=== PATIENT | female | born 1980 | race Caucasian/White ===

== ENCOUNTER 2016-08-15 23:52 | Emergency (ER) | payer OTHER ==
--- NOTE | 2016-08-16 02:13 | ED CLINICAL REPORT ---
Clinical Report - Physicians/Mid Levels [facility] [address] [place] [address] 08/15/2016 23:55 Patient: BRIAN GUTIERRES Time Seen: 02:11 Aug 16 2016. Arrived- By private vehicle. Historian- patient. CPT: ER phys charges level 3 (#[id number]). HISTORY OF PRESENT ILLNESS Chief Complaint: EARACHE. This started today and is still present. Onset during light activity. Modifying factors. Not worsened by anything. Not relieved by anything. Location- left ear. The pain is described as moderate. The patient has had ear pain and recent air travel. She has had mild left-sided hearing loss. No ear drainage, nasal discharge or congestion, sinus pressure or complaint of foreign body in the ear. No sore throat or toothache. Similar symptoms previously: None. Recent medical care: Not recently seen/assessed. REVIEW OF SYSTEMS No fever, chills, cough, difficulty breathing or chest pain. No nausea, vomiting, diarrhea, abdominal pain or skin rash. No enlarged lymph nodes. All systems otherwise negative, except as recorded above. PAST HISTORY Delayed sleep onset. Gastroesophageal Reflux. Anxiety Reaction. . Tubal Ligation. No history of frequent ear infections. Medications: Melatonin Oral. Airborne Oral. Vitamin D Oral. Multivitamin Oral. CeleXA Oral. Omeprazole Oral. Allergies: No Known Drug Allergy. SOCIAL HISTORY Never smoker. No alcohol use or drug use. ADDITIONAL NOTES The nursing notes have been reviewed. PHYSICAL EXAM Vital Signs: 08/16/2016 00:13 BP: 120/83. HR: 89. RR: 18. O2 saturation: 100%. Temp: 100.7 F. Pain level now: 7/10. Appearance: Alert. Appears to be in pain. Patient in moderate distress. Eyes: Eyes normal inspection. Ear (right): Right ear normal. Right tympanic membrane normal. Throat: Pharynx normal. Nose: Nose normal. Ear (left): There is dullness and perforation of the tympanic membrane and fluid behind the tympanic membrane. Left ear normal. Neck: Normal inspection. CVS: Normal heart rate and rhythm. Respiratory: No respiratory distress. Skin: Normal skin color. No rash. Neuro: Oriented X 3. PROGRESS AND PROCEDURES Course of Care: percocet 2 po Augmentin 875 mg po. Patient/family counseled. Disposition: Discharged. Condition: stable. CLINICAL IMPRESSION Acute suppurative left otitis media. No recurrent left otitis media. No chronic left otitis media. Barotrauma left ear. INSTRUCTIONS Do not allow water in ear. Drink plenty of fluids. Warnings: Further evaluation is necessary. GENERAL WARNINGS: Return or contact your physician immediately if your condition worsens or changes unexpectedly, if not improving as expected, or if other problems arise. Your Current Medications: CONTINUE TAKING THE FOLLOWING MEDICATIONS: Airborne Oral. CeleXA Oral. Melatonin Oral. Multivitamin Oral. Omeprazole Oral. Vitamin D Oral. Prescription Medications: Augmentin 875 mg: take 1 tablet orally every 12 hours for 7 days. Dispense fourteen (14). No refills. Substitution is permissible. Oxycodone/APAP 5 mg/325 mg: take 1-2 tablets orally every 4 hours as needed for pain. Dispense fifteen (15). No refill. Follow-up: Follow up with your doctor in one week. Call for an appointment. Understanding of the discharge instructions verbalized by patient. Discharge instructions reviewed with and understanding was verbalized by spouse. (Electronically signed by Ben Friedman MD 08/18/2016 23:33)
--- NOTE | 2016-08-16 02:13 | ED NURSING NOTES ---
Clinical Report - Nurses [facility] [address] [place] [address] 08/15/2016 23:55 Patient: BRIAN GUTIERRES TRIAGE Triage time 00:14. Acuity: LEVEL 4. Chief Complaint: LEFT EAR PAIN and (Onset yesterday during flight from [place], reports "stabbing, horrible pain on descent," radiating down to jaw; Alleviating factors: ibuprofen and tylenol; Aggravating factors: everything.). Alert. No acute distress. SEPSIS SCREEN: Sepsis Screen: negative. Negative (no infection suspected/documented). --00:21 Angus Fuentes R.N. 00:13 08/16/16. BP: 120/83 (regular adult cuff) taken on the left arm, via an automated monitor, while sitting. HR: 89 (normal rate). RR: 18 (regular, unlabored and normal). O2 saturation: 100% on room air. Temp: 100.7 F (oral). Pain level now: 01/25. --00:21 Angus Fuentes R.N. Weight: 61.6 kg stated. Height/Length: 65 inches Per Patient. BMI: 22.6. --00:15 Angus Fuentes R.N. Medications Omeprazole Oral. --00:14 Angus Fuentes R.N. CeleXA Oral. --00:15 Angus Fuentes R.N. Multivitamin Oral. --00:15 Angus Fuentes R.N. Vitamin D Oral. --00:15 Angus Fuentes R.N. Airborne Oral. --00:15 Angus Fuentes R.N. Melatonin Oral. --00:15 Angus Fuentes R.N. Medication/allergy information source: the patient. --00:21 Angus Fuentes R.N. Allergies No Known Drug Allergy. --00:15 Angus Fuentes R.N. History Arrived by private vehicle. Historian: patient. Accompanied by spouse. Primary physician (Dr. Orosco). This started yesterday. 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 Symptoms did not improve after treatment. (2100 last dose). PAST MEDICAL HX: Immunizations: up-to-date and seasonal influenza. Last normal menstrual period- about 1 week ago. Denies current . SOCIAL HX: Never smoker. No alcohol use or drug use. She has not traveled outside the [place] The patient was not exposed to MRSA. ABUSE ASSESSMENT: Abuse assessment: The patient was asked "Do you feel safe in your home?" and "Has anyone hurt you or threatened to hurt you?". No report of abuse. SELF HARM ASSESSMENT: A self harm assessment was performed. The patient answered "no" to the question "Do you have thoughts of harming or killing yourself?" and "Have you recently had thoughts about harming or killing others?". FALL RISK ASSESSMENT: Fall risk assessment completed. No fall risk identified. NUTRITIONAL RISK ASSESSMENT: The nutritional risk assessment revealed no deficiencies. LEARNING NEEDS ASSESSMENT: The learning needs assessment revealed no barriers. FUNCTIONAL ASSESSMENT: Functional assessment performed: wears glasses- this visual impairment is an ongoing problem. SKIN INTEGRITY ASSESSMENT: Skin integrity risk assessment completed. No skin integrity risk identified. --00:21 Angus Fuentes RDoug. PROBLEMS: Delayed sleep onset. Gastroesophageal Reflux. Anxiety Reaction. --00:16 Angus Fuentes RAdrianeN. ADDITIONAL SURGERIES: . Tubal Ligation. --00:16 Angus Fuentes RAdrianeN. Assessment GENERAL / NEURO / PSYCH: Alert. Oriented X 4. Appears in no acute distress. [place] Coma Scale: 15- eyes open spontaneously (4); best verbal response- oriented x 4 (5); best motor response- obeys commands (6). Patient appears calm and cooperative. HEENT: Left TM reveals erythema. (No pain on the mastoid, bilaterally.). No erythema or pain on movement of the right auricle. No exudate, inflammation, cerumen or cerumen impaction in the right external auditory canal. No erythema of the right TM. No erythema or pain upon movement of the left auricle. No exudate, inflammation, cerumen or cerumen impaction in the left external auditory canal. RESPIRATORY: Respirations not labored. SKIN: Skin is warm and dry. --00:21 Angus Fuentes R.N. Interventions ID band on patient. To waiting room. --00:21 Angus Fuentes R.N. PHYSICAL ASSESSMENT Ambulatory to room. GENERAL / NEURO / PSYCH: Alert. Appears in pain. HEENT: No facial asymmetry noted. Pupils equal, round and reactive to light. Nares within normal limits. Pharynx within normal limits. ( ear exam deferred to Provider-). RESPIRATORY: Respirations not labored. CVS: Capillary refill less than 2 seconds. SKIN: Skin is warm and dry. --00:41 Jojo Maloney. NURSING PROGRESS NOTES 01:48 08/16/16. BP: 110/55. HR: 90. O2 saturation: 96% on room air. Temp: deferred. Pain level now: 5/10. --01:49 Norma Almendarez ( Lights dimmed, patient resting quietly). --01:49 Norma Almendarez 02:23 08/16/2016 Oxycodone-APAP (Oxycodone-Acetaminophen) PO 5/325 mg Tablets 2 tab given. Allergies verified, confirmed 5 rights and sedative warning given to the patient and patient's family. --02:23 Norma Almendarez 02:24 08/16/2016 Augmentin (Amoxicillin-Pot Clavulanate) PO Capsules 875 mg given. Allergies verified and confirmed 5 rights. --02:24 Norma Almendarez. DISPOSITION / DISCHARGE 02:24 08/16/16. BP: 115/60. HR: 90. O2 saturation: 98% on room air. Temp: 100 F (oral). Pain level now: 5/10. --02:25 Norma Almendarez 02:26 08/16/16. Condition at departure: stable. No learning barriers present. Discharge instructions provided and reviewed with the patient and spouse. Reviewed warnings (Do not drive while taking seditive medications). Reviewed medication(s) side effects, precautions, dosing and course information. Prescription(s) given to the patient. Patient and spouse verbalized understanding. Written instructions provided in [place]. ( Follow up with PCP in one week.). The patient was discharged by the physician. She was discharged home and accompanied by spouse. She left the Emergency Department ambulatory and via private vehicle. Spouse driving. --02:26 Norma Almendarez. Locked/Released at 08/16/2016 2:30 by Norma Almendarez,
--- NOTE | 2016-08-16 02:13 | ED CLINICAL REPORT ---
Clinical Report - Physicians/Mid Levels [facility] [address] [place] [address] 08/15/2016 23:55 Patient: BRIAN GUTIERRES Time Seen: 02:11 Aug 16 2016. Arrived- By private vehicle. Historian- patient. CPT: ER phys charges level 3 (#[id number]). HISTORY OF PRESENT ILLNESS Chief Complaint: EARACHE. This started today and is still present. Onset during light activity. Modifying factors. Not worsened by anything. Not relieved by anything. Location- left ear. The pain is described as moderate. The patient has had ear pain and recent air travel. She has had mild left-sided hearing loss. No ear drainage, nasal discharge or congestion, sinus pressure or complaint of foreign body in the ear. No sore throat or toothache. Similar symptoms previously: None. Recent medical care: Not recently seen/assessed. REVIEW OF SYSTEMS No fever, chills, cough, difficulty breathing or chest pain. No nausea, vomiting, diarrhea, abdominal pain or skin rash. No enlarged lymph nodes. All systems otherwise negative, except as recorded above. PAST HISTORY Delayed sleep onset. Gastroesophageal Reflux. Anxiety Reaction. . Tubal Ligation. No history of frequent ear infections. Medications: Melatonin Oral. Airborne Oral. Vitamin D Oral. Multivitamin Oral. CeleXA Oral. Omeprazole Oral. Allergies: No Known Drug Allergy. SOCIAL HISTORY Never smoker. No alcohol use or drug use. ADDITIONAL NOTES The nursing notes have been reviewed. PHYSICAL EXAM Vital Signs: 08/16/2016 00:13 BP: 120/83. HR: 89. RR: 18. O2 saturation: 100%. Temp: 100.7 F. Pain level now: 7/10. Appearance: Alert. Appears to be in pain. Patient in moderate distress. Eyes: Eyes normal inspection. Ear (right): Right ear normal. Right tympanic membrane normal. Throat: Pharynx normal. Nose: Nose normal. Ear (left): There is dullness and perforation of the tympanic membrane and fluid behind the tympanic membrane. Left ear normal. Neck: Normal inspection. CVS: Normal heart rate and rhythm. Respiratory: No respiratory distress. Skin: Normal skin color. No rash. Neuro: Oriented X 3. PROGRESS AND PROCEDURES Course of Care: percocet 2 po Augmentin 875 mg po. Patient/family counseled. Disposition: Discharged. Condition: stable. CLINICAL IMPRESSION Acute suppurative left otitis media. No recurrent left otitis media. No chronic left otitis media. Barotrauma left ear. INSTRUCTIONS Do not allow water in ear. Drink plenty of fluids. Warnings: Further evaluation is necessary. GENERAL WARNINGS: Return or contact your physician immediately if your condition worsens or changes unexpectedly, if not improving as expected, or if other problems arise. Your Current Medications: CONTINUE TAKING THE FOLLOWING MEDICATIONS: Airborne Oral. CeleXA Oral. Melatonin Oral. Multivitamin Oral. Omeprazole Oral. Vitamin D Oral. Prescription Medications: Augmentin 875 mg: take 1 tablet orally every 12 hours for 7 days. Dispense fourteen (14). No refills. Substitution is permissible. Oxycodone/APAP 5 mg/325 mg: take 1-2 tablets orally every 4 hours as needed for pain. Dispense fifteen (15). No refill. Follow-up: Follow up with your doctor in one week. Call for an appointment. Understanding of the discharge instructions verbalized by patient. Discharge instructions reviewed with and understanding was verbalized by spouse. (Electronically signed by Ben Friedman MD 08/18/2016 23:33)
--- NOTE | 2016-08-16 02:14 | ED ORDER SUMMARY ---
..... Patient: BRIAN GUTIERRES OrderSheet [facility] VisitID: [id number] [address] [place] [address] 36y, F Registration Date/Time: 08/15/2016 ORDER SHEET Weight: 61.6 kg (stated) Allergies: No Known Drug Allergy GENERAL ORDERS: MEDICATION ORDERS: Oxycodone-APAP PO 10/650 mg (NOW) (02:08/16/2016 Uli VARGAS) (Ack 2:20 HSoule) (2:23 HSoule) Augmentin PO 875 mg (NOW) (:08/16/2016 Uli VARGAS) (Ack 2:20 HSoule) (2:24 HSoule) IV FLUIDS: ORDER SHEET NOTES: [Electronically signed by Norma Almendarez (02:08/16/2016)] [Electronically signed by Ben Friedman MD (23:33 08/18/2016)] [Electronically locked/signed by Norma Almendarez (02:08/16/2016)]
--- NOTE | 2016-08-16 02:14 | ED ORDER SUMMARY ---
..... Patient: BRIAN GUTIERRES OrderSheet [facility] VisitID: [id number] [address] [place] [address] 36y, F Registration Date/Time: 08/15/2016 ORDER SHEET Weight: 61.6 kg (stated) Allergies: No Known Drug Allergy GENERAL ORDERS: MEDICATION ORDERS: Oxycodone-APAP PO 10/650 mg (NOW) (02:08/16/2016 Uli VARGAS) (Ack 2:20 HSoule) (2:23 HSoule) Augmentin PO 875 mg (NOW) (:08/16/2016 Uli VARGAS) (Ack 2:20 HSoule) (2:24 HSoule) IV FLUIDS: ORDER SHEET NOTES: [Electronically signed by Norma Almendarez (02:08/16/2016)] [Electronically signed by Ben Friedman MD (23:33 08/18/2016)] [Electronically locked/signed by Norma Almendarez (02:08/16/2016)]
--- NOTE | 2016-08-18 23:33 | ED MED RECONCILIATION SUMMARY ---
Patient: BRIAN GUTIERRES Medication Reconciliation Report [facility] VisitID: [id number] [place] [address] 36y, F Registration Date/Time: 08/15/2016 Weight: 61.6 kg Height/Length: 65 in. BMI: 22.6 ALLERGIES: No Known Drug Allergy The patient's Home Medications are listed below: CONTINUE TAKING THE FOLLOWING MEDICATIONS: Airborne Oral CeleXA Oral Melatonin Oral Multivitamin Oral Omeprazole Oral Vitamin D Oral The source(s) of the original Home Medication information: patient The following Medications were given to the patient in the Emergency Department: Oxycodone-APAP [PO] PO 2 tab, administered: 08/16/2016 2:23:00 AM Augmentin [PO] PO 875 mg, administered: 08/16/2016 2:24:00 AM The following Medications were prescribed to the patient: Augmentin 875 mg: take 1 tablet orally every 12 hours for 7 days. Dispense fourteen (14). No refills. Substitution is permissible. -- Ben Friedman MD Oxycodone/APAP 5 mg/325 mg: take 1-2 tablets orally every 4 hours as needed for pain. Dispense fifteen (15). No refill. -- Ben Friedman MD
--- NOTE | 2016-08-18 23:33 | ED MAR SUMMARY ---
..... Medication Administration Record [facility] [address] [address] Patient: BRIAN GUTIERRES Visit ID: [id number] 36y, F Weight: 61.6 kg Height/Length: 65 in BMI: 22.6 ALLERGIES: No Known Drug Allergy Given 02:08/16/2016 Norma Almendarez, Medication Administered: OXYCODONE-APAP [PO] (OXYCODONE-ACETAMINOPHEN), Dose: 2 tab 5/325 mg Tablets PO. Medication Ordered: Oxycodone-APAP PO 10/650 mg (NOW). Given 02:08/16/2016 Norma Almendarez, Medication Administered: AUGMENTIN [PO] (AMOXICILLIN-POT CLAVULANATE), Dose: 875 mg Capsules PO. Medication Ordered: Augmentin PO 875 mg (NOW).
--- NOTE | 2016-08-18 23:33 | ED DISCHARGE INSTRUCTIONS ---
Patient: BRIAN GUTIERRES General Instructions [facility] VisitID: [id number] [place] [address] 36y, F Registration Date/Time: 08/15/2016 Acute suppurative left otitis media. No recurrent left otitis media. No chronic left otitis media. Barotrauma left ear. INSTRUCTIONS Do not allow water in ear. Drink plenty of fluids. Warnings: Further evaluation is necessary. GENERAL WARNINGS: Return or contact your physician immediately if your condition worsens or changes unexpectedly, if not improving as expected, or if other problems arise. Your Current Medications: CONTINUE TAKING THE FOLLOWING MEDICATIONS: Airborne Oral. CeleXA Oral. Melatonin Oral. Multivitamin Oral. Omeprazole Oral. Vitamin D Oral. Prescription Medications: Augmentin 875 mg: take 1 tablet orally every 12 hours for 7 days. Dispense fourteen (14). No refills. Substitution is permissible. Oxycodone/APAP 5 mg/325 mg: take 1-2 tablets orally every 4 hours as needed for pain. Dispense fifteen (15). No refill. Follow-up: Follow up with your doctor in one week. Call for an appointment. Understanding of the discharge instructions verbalized by patient. Discharge instructions reviewed with and understanding was verbalized by spouse. ADDITIONAL INFORMATION Middle Ear Infection (Adult) You have an infection of the middle ear (the space behind the eardrum). It can occur as a result of the common cold. This is because congestion can block the internal passage (eustachian tube) that drains fluid from the middle ear. When the middle ear fills with fluid, bacteria can grow there and cause an infection. Oral antibiotics are used to treat this illness, not ear drops. Symptoms usually start to improve within 1-2 days of treatment. Home Care: Finish all of the antibiotic medicine prescribed, even though you may feel better after the first few days. You may use acetaminophen (Tylenol) or ibuprofen (Motrin, Advil) to control pain, unless something else was prescribed. [NOTE: If you have chronic liver or kidney disease or have ever had a stomach ulcer or GI bleeding, talk with your doctor before using these medicines.] (Do not give aspirin to anyone under 18 years of age who is ill with a fever. It may cause severe liver damage.) Follow Up with your doctor or this facility in two weeks if all symptoms have not cleared, or if hearing does not return to normal within one month. Get Prompt Medical Attention if any of the following occur: Ear pain gets worse or does not improve after three days of treatment Unusual drowsiness or confusion Neck pain, stiff neck or headache Fluid or blood draining from the ear canal Fever of 100.4F (38C) or higher after 3 days of antibiotics, or as directed by your healthcare provider Convulsion (seizure) Oxycodone Hydrochloride, Acetaminophen Oral tablet What is this medicine? ACETAMINOPHEN; OXYCODONE (a set a CYNTHIA vero fen; ox i KOE done) is a pain reliever. It is used to treat mild to moderate pain. How should I use this medicine? Take this medicine by mouth with a full glass of water. Follow the directions on the prescription label. Take your medicine at regular intervals. Do not take your medicine more often than directed. Talk to your radiation officer regarding the use of this medicine in children. Special care may be needed. Patients over 65 years old may have a stronger reaction and need a smaller dose. What side effects may I notice from receiving this medicine? Side effects that you should report to your doctor or health critical care specialist as soon as possible: allergic reactions like skin rash, itching or hives, swelling of the face, lips, or tongue breathing difficulties, wheezing confusion light headedness or fainting spells severe stomach pain yellowing of the skin or the whites of the eyes Side effects that usually do not require medical attention (report to your doctor or health critical care specialist if they continue or are bothersome): dizziness drowsiness nausea vomiting What may interact with this medicine? alcohol antihistamines barbiturates like amobarbital, butalbital, butabarbital, methohexital, pentobarbital, phenobarbital, thiopental, and secobarbital benztropine drugs for bladder problems like solifenacin, trospium, oxybutynin, tolterodine, hyoscyamine, and methscopolamine drugs for breathing problems like ipratropium and tiotropium drugs for certain stomach or intestine problems like propantheline, homatropine methylbromide, glycopyrrolate, atropine, belladonna, and dicyclomine general anesthetics like etomidate, ketamine, nitrous oxide, propofol, desflurane, enflurane, halothane, isoflurane, and sevoflurane medicines for depression, anxiety, or psychotic disturbances medicines for sleep muscle relaxants naltrexone narcotic medicines (opiates) for pain phenothiazines like perphenazine, thioridazine, chlorpromazine, mesoridazine, fluphenazine, prochlorperazine, promazine, and trifluoperazine scopolamine tramadol trihexyphenidyl What if I miss a dose? If you miss a dose, take it as soon as you can. If it is almost time for your next dose, take only that dose. Do not take double or extra doses. Where should I keep my medicine? Keep out of the reach of children. This medicine can be abused. Keep your medicine in a safe place to protect it from theft. Do not share this medicine with anyone. Selling or giving away this medicine is dangerous and against the law. Store at room temperature between 20 and 25 degrees C (68 and 77 degrees F). Keep container tightly closed. Protect from light. This medicine may cause accidental overdose and if it is taken by other adults, children, or pets. Flush any unused medicine down the toilet to reduce the chance of harm. Do not use the medicine after the expiration date. What should I tell my health care provider before I take this medicine? They need to know if you have any of these conditions: brain tumor Crohn's disease, inflammatory bowel disease, or ulcerative colitis drink more than 3 alcohol containing drinks per day drug abuse or addiction head injury heart or circulation problems kidney disease or problems going to the bathroom liver disease lung disease, asthma, or breathing problems an unusual or allergic reaction to acetaminophen, oxycodone, other opioid analgesics, other medicines, foods, dyes, or preservatives or trying to get breast-feeding What should I watch for while using this medicine? Tell your doctor or health critical care specialist if your pain does not go away, if it gets worse, or if you have new or a different type of pain. You may develop tolerance to the medicine. Tolerance means that you will need a higher dose of the medication for pain relief. Tolerance is normal and is expected if you take this medicine for a long time. Do not suddenly stop taking your medicine because you may develop a severe reaction. Your body becomes used to the medicine. This does NOT mean you are addicted. Addiction is a behavior related to getting and using a drug for a non-medical reason. If you have pain, you have a medical reason to take pain medicine. Your doctor will tell you how much medicine to take. If your doctor wants you to stop the medicine, the dose will be slowly lowered over time to avoid any side effects. You may get drowsy or dizzy. Do not drive, use machinery, or do anything that needs mental alertness until you know how this medicine affects you. Do not stand or sit up quickly, especially if you are an older patient. This reduces the risk of dizzy or fainting spells. Alcohol may interfere with the effect of this medicine. Avoid alcoholic drinks. There are different types of narcotic medicines (opiates) for pain. If you take more than one type at the same time, you may have more side effects. Give your health care provider a list of all medicines you use. Your doctor will tell you how much medicine to take. Do not take more medicine than directed. Call emergency for help if you have problems breathing. The medicine will cause constipation. Try to have a bowel movement at least every 2 to 3 days. If you do not have a bowel movement for 3 days, call your doctor or health critical care specialist. Do not take Tylenol (acetaminophen) or medicines that have acetaminophen with this medicine. Too much acetaminophen can be very dangerous. Many nonprescription medicines contain acetaminophen. Always read the labels carefully to avoid taking more acetaminophen. You have been given the following additional information: Otitis Media, Abx Tx (Adult) Oxycodone Hydrochloride, Acetaminophen Oral tablet Do not allow water in ear. (Electronically signed by Ben Friedman MD 08/18/2016 23:33)
--- NOTE | 2016-08-18 23:33 | ED MAR SUMMARY ---
..... Medication Administration Record [facility] [address] [place] [address] Patient: BRIAN GUTIERRES Visit ID: [id number] 36y, F Weight: 61.6 kg Height/Length: 65 in BMI: 22.6 ALLERGIES: No Known Drug Allergy Given 02:08/16/2016 Norma Almendarez, Medication Administered: OXYCODONE-APAP [PO] (OXYCODONE-ACETAMINOPHEN), Dose: 2 tab 5/325 mg Tablets PO. Medication Ordered: Oxycodone-APAP PO 10/650 mg (NOW). Given 02:08/16/2016 Norma Almendarez, Medication Administered: AUGMENTIN [PO] (AMOXICILLIN-POT CLAVULANATE), Dose: 875 mg Capsules PO. Medication Ordered: Augmentin PO 875 mg (NOW).
--- NOTE | 2016-08-18 23:33 | ED MED RECONCILIATION SUMMARY ---
Patient: BRIAN GUTIERRES Medication Reconciliation Report [facility] VisitID: [id number] [place] [address] 36y, F Registration Date/Time: 08/15/2016 Weight: 61.6 kg Height/Length: 65 in. BMI: 22.6 ALLERGIES: No Known Drug Allergy The patient's Home Medications are listed below: CONTINUE TAKING THE FOLLOWING MEDICATIONS: Airborne Oral CeleXA Oral Melatonin Oral Multivitamin Oral Omeprazole Oral Vitamin D Oral The source(s) of the original Home Medication information: patient The following Medications were given to the patient in the Emergency Department: Oxycodone-APAP [PO] PO 2 tab, administered: 08/16/2016 2:23:00 AM Augmentin [PO] PO 875 mg, administered: 08/16/2016 2:24:00 AM The following Medications were prescribed to the patient: Augmentin 875 mg: take 1 tablet orally every 12 hours for 7 days. Dispense fourteen (14). No refills. Substitution is permissible. -- Ben Friedman MD Oxycodone/APAP 5 mg/325 mg: take 1-2 tablets orally every 4 hours as needed for pain. Dispense fifteen (15). No refill. -- Ben Friedman MD
== END 2016-08-16 02:25 | disposition home or self-care (01) ==
LOC: ED SRH 23:52
DX: H66.012 Acute suppurative otitis media with spontaneous rupture of ear drum, left ear (principal); T70.29XA Other effects of high altitude, initial encounter; K21.9 Gastro-esophageal reflux disease without esophagitis; Z79.899 Other long term (current) drug therapy